=== PATIENT | female | born 1990 | race Caucasian/White ===

== ENCOUNTER → 2016-09-19 | Outpatient (CLI) | payer BC ==
[~2016-09-19] MED LIST: ACET-749 PO; MTR600X PO; PRENTAB26 PO
[2016-09-19 13:43] LABS: BASO % 0.2 %; BASO ABS # 0.02 K/uL (0-0.2); COMPLETE YES; EOS % 1.3 %; HEMATOCRIT 37.9 % (37-47); IG% 0.2 %; LYMPH % 18.1 %; LYMPH ABS # 2.01 K/uL (1.2-3.4); MEAN CELL VOLUME 86.5 fL (80-100); MEAN CORPUSCULAR HEMOGLOBIN 29.9 pg (25-34); MEAN CORPUSCULAR HGB CONC 34.6 g/dl (32-36); MEAN PLATELET VOLUME 11.6 fL (7.4-10.4); NEUT % 74.2 %; PLATELET COUNT 212 K/uL (130-400); RED BLOOD COUNT 4.38 M/uL (4.2-5.4)
[2016-09-19 14:09] LABS: URINE APPEARANCE CLOUDY (CLEAR); URINE BILIRUBIN NEG (NEG); URINE COLOR YELLOW; URINE EPITHELIAL CELL AUTO >30 /lpf (0-5); URINE NITRITE NEG (NEG); URINE SPECIFIC GRAVITY 1.014 (1.000-1.030); UROBILINOGEN NEG (NEG)
[2016-09-19 14:13] LABS: MANUAL MICROSCOPIC REQUIRED? NO; REVIEW REQ? NO
[2016-09-21 14:54] LABS: CHLAMYDIA TRACH RNA*** NOT DETECTED (NOT DETECTED); GC (NEIS GONORRHOEAE)RNA** NOT DETECTED (NOT DETECTED)
== END | disposition home or self-care (01) ==
LOC: C.LAB1850 12:13
PROVIDERS: ATTEND Obstetrics & Gynecology
DX: Z34.90 Encounter for supervision of normal pregnancy, unspecified, unspecified trimester (principal)

== ENCOUNTER → 2016-10-18 | Outpatient (CLI) | payer BC ==
[2016-10-18 18:31] LABS: GTGD 50 Grams
== END | disposition home or self-care (01) ==
LOC: C.LAB1850 16:31
PROVIDERS: ATTEND Obstetrics & Gynecology
DX: Z34.90 Encounter for supervision of normal pregnancy, unspecified, unspecified trimester (principal)

== ENCOUNTER → 2017-01-18 | Outpatient (CLI) | payer BC ==
[2017-01-18 14:11] LABS: URINE APPEARANCE CLEAR (CLEAR); URINE BILIRUBIN NEG (NEG); URINE COLOR YELLOW; URINE NITRITE NEG (NEG); URINE PH 6.5 (4.5-7.5); URINE SPECIFIC GRAVITY 1.007 (1.000-1.030); UROBILINOGEN NEG (NEG)
[2017-01-18 14:23] LABS: MANUAL MICROSCOPIC REQUIRED? NO; REVIEW REQ? NO
== END | disposition home or self-care (01) ==
LOC: C.LABSPEC 13:28
PROVIDERS: ATTEND Obstetrics & Gynecology
DX: Z34.82 Encounter for supervision of other normal pregnancy, second trimester (principal)

== ENCOUNTER → 2017-01-18 | Outpatient (CLI) | payer BC ==
[2017-01-18 14:17] LABS: HEMATOCRIT 33.4 % (37-47)
[2017-01-18 14:59] LABS: GTGD 50 Grams
== END | disposition home or self-care (01) ==
LOC: C.LAB1850 12:23
PROVIDERS: ATTEND Obstetrics & Gynecology
DX: Z34.82 Encounter for supervision of other normal pregnancy, second trimester (principal)

== ENCOUNTER → 2017-03-15 | Outpatient (CLI) | payer BC | END | disposition home or self-care (01) | LOC: C.LABSPEC 15:55 | PROVIDERS: ATTEND Obstetrics & Gynecology | DX: Z34.83 Encounter for supervision of other normal pregnancy, third trimester (principal) ==

== ENCOUNTER 2017-04-13 08:20 | Inpatient (IN) | payer BC ==
[~2017-04-13] VITALS: Ht 162.6 cm; Wt 74.5 kg
[2017-04-13] MEDS ORDERED: LACTATED RINGER'S 1000ML 1,000 ML IV PRN (08:38)
--- NOTE | 2017-04-13 08:58 | Medical Student: [facility] ---
Med Student History & Physical Date of Service Apr 13, 2017. Chief Complaint Check Labor History of Present Illness Source: patient Yeimy is a 26 year old female who presents for labor check at 41 weeks. Her RODRIGO was 04/06/2017 based on 1st trimester US. Her course was uncomplicated. Currently she is feeling contractions every 4 minutes. She states that she feels movements and that her contractions are painful, and she has had leakage of fluid for one day with no gush. There was a small amount of blood in the fluid. Her blood type is O+, and she is rubella immune, GBS positive, VDRL/RPR nonreactive, HIV counseling/testing negative, and had a 1 -hour glucose within normal limits. At 28 weeks her Hb was 11.3 and her Hct was 33.4. Patient denies headache, dizziness, nausea/vomiting, chest pain, and shortness of breath. 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 Past Surgical History Cyst removed from hand. Family History Spina bifida, brother Type 2 diabetes mellitus, maternal side of family Social History Smoking Status: Never Smoker Smokeless Tobacco Use: No Alcohol Use: none Drug Use: none Marital Status: Housing status: lives with family Occupational Status: employed Allergies Coded Allergies: No Known Allergies (Unverified , 03/13/15) Home Medications Acetaminophen/Codeine (Tylenol W/Codeine #3), 2 TAB PO Q4H PRN for Pain not controlled by... Ibuprofen (Ibuprofen), 600 MG PO Q4H PRN for PAIN, SENA, CRAMPING OR FEVER Multivit/Min/Iron/Fol Ac/Pren ( Vitamin), 1 TAB PO DAILY Review of Systems Constitutional: No fever, No chills, No sweats Eyes: + problem reported (Blurred vision on one occasion, at roughly 36 weeks GA) Respiratory: No cough, No wheezing, No shortness of breath Cardiovascular: No chest pain, No edema Abdomen: + pain (Contractions), No nausea, No vomiting Genitourinary - Female: + (Leakage of fluid for one day), No dysuria , No urinary urgency Psychiatric: No depression symptoms Hematologic / Lymphatic: No abnormal bleeding/bruising Physical Exam General Appearance: WD/WN, no apparent distress Head: normocephalic, atraumatic Respiratory/Chest: chest non-tender, lungs clear, normal breath sounds Cardiovascular: regular rate, rhythm, no edema, no murmur Abdomen / GI: normal bowel sounds, non tender, soft, + pertinent finding ( Gravid uterus) Genitourinary - Female: + pertinent finding (Dilation: 6 cm Effacement: 100% Station: -1 (exam by Dr. Horton)) Extremities: normal inspection, no calf tenderness, no pedal edema, non-tender Skin: normal color Monitoring External Monitor: Moderate variability. +Accels No decels. Category 1. Baseline HR: 135 Tocodynamometer: Uterine contractions ever 4 minutes per monitor and patient. Laboratory Results Test 04/13/17 08:38 Assessment and Plan Assessment: This is a 26 year old at 40 weeks gestation who presents today for labor check. She had no complications during . heart tracing is category 1. Plan: Admit to labor and delivery. Monitor mother and fetus with toco and EFM. NPO except ice chips and clear liquids. Expect normal spontaneous vaginal delivery.
[2017-04-13] MEDS ORDERED: LACTATED RINGER'S 1000ML 1,000 ML IV SCH ×2 (09:00→13:57)
[2017-04-13] MEDS ORDERED: PENICILLIN G POTASSIUM IV 6 MU in DEXTROSE 5% 250ML 250 ML IV ONE (09:00)
[2017-04-13 09:14] LABS: HEMATOCRIT 34.4 % (37-47); MEAN CELL VOLUME 84.7 fL (80-100); MEAN CORPUSCULAR HEMOGLOBIN 27.1 pg (25-34); MEAN PLATELET VOLUME 11.1 fL (7.4-10.4); PLATELET COUNT 178 K/uL (130-400); RED BLOOD COUNT 4.06 M/uL (4.2-5.4); WHITE BLOOD COUNT 13.84 K/uL (4.8-10.8)
[2017-04-13] MEDS ORDERED: PENICILLIN G POTASSIUM IV 3 MU in DEXTROSE 5% 100ML 100 ML IV PRN (12:00)
[2017-04-13 12:41] VITALS: Ht 162.6 cm; Wt 74.5 kg
[2017-04-13] MEDS ORDERED: OXYTOCIN 30 UNITS/500ML NSS IV ONE (13:47)
[2017-04-13] MEDS ORDERED: MISOPROSTOL 200 MCG TAB ONE (13:54)
[2017-04-13] MEDS ORDERED: ACETAMINOPHEN 325 MG TAB PO PRN (14:00)
[2017-04-13] MEDS ORDERED: MISOPROSTOL 200 MCG TAB PR SCH (14:00)
[2017-04-13] MEDS ORDERED: DIPHTHERIA/TETANUS/PERTUSSIS 0.5 ML SYR/VIAL IM. ONE (14:00)
[2017-04-13] MEDS ORDERED: LANOLIN OINT EXT PRN ×2 (14:00)
[2017-04-13] MEDS ORDERED: OXYTOCIN 30 UNITS/500ML NSS IV PRN (14:00)
[2017-04-13] MEDS ORDERED: HYDROCORTISONE ACETATE 25 MG SUPP PR PRN (14:00)
[2017-04-13] MEDS ORDERED: OXYCODONE/ACETAMINOPHEN 5-325 TAB PO PRN (14:00)
[2017-04-13] MEDS ORDERED: BENZOCAINE 20% AER SPR 82.5 GM CAN EXT PRN (14:00)
[2017-04-13] MEDS ORDERED: SUPERCREAM 0.870 % 15GM JAR EXT PRN (14:00)
--- NOTE | 2017-04-13 14:25 | DELIVERY SUMMARY ---
DATE OF OPERATION: 04/13/2017 VAGINAL DELIVERY NOTE DATE OF DELIVERY: 04/13/2017 PREOPERATIVE DIAGNOSES: 1. Marcus intrauterine at 41 weeks. 2. Labor. 3. Group B strep positive. POSTOPERATIVE DIAGNOSIS: Same. PROCEDURE: Spontaneous vaginal delivery. SURGEON: Dr. Joy. ASSIST: MS3. ESTIMATED BLOOD LOSS: 400. COMPLICATIONS: None. DISPOSITION: Stable in labor and delivery. DESCRIPTION: Yeimy is a G2, P1 who presented at 41 weeks. She was admitted by my partner Dr. Horton and I assumed care of the patient at 8:30 in the morning on 04/13/2017. The patient arrived in labor at 5 cm. She progressed spontaneously. I was called to the patient's room for an urge to push in the early afternoon. When I examined the patient she was completely dilated with bulging bag and during the exam the bag ruptured for copious meconium stained fluid. The patient then began to push actively and rapidly brought the head to delivery. There was a nuchal cord was that reduced at delivery. The shoulders and the remainder of the delivered without any difficulty. The infant was placed on the foot of the bed which had been left intact. Bulb suction was provided while the cord was doubly clamped and cut. The was then taken to warmer for attention. The placenta delivered spontaneously and was intact with a 3-vessel cord. The patient was found to have a first degree posterior vaginal and perineal laceration however the patient was extremely poorly tolerant to exam and the laceration was very nearly hemostatic. For these reasons it was allowed to remain unrepaired. The patient's fundus was initially firm however there noted to be a fairly aggressive gush of blood. This resolved rapidly with bimanual massage however the patient once again was very poorly tolerant of exam and bimanual massage was unable to be performed in any lengthy manner because of the patient fighting us. We then counseled her that her bleeding was on the heavier end of normal and that we needed to perform massage in order to slow the bleeding. Once again the patient was physically combative with any attempt to massage therefore although EBL I am estimating at only 400 mL, 800 mcg of Cytotec was placed with the patient's permission in order to minimize ongoing blood losses and the need for continued massage. At the present time the patient's fundus is form, lochia is within normal limits and the mother and are in stable condition having tolerated delivery well. I attest to the content of the Intraoperative Record and any orders documented therein. Any exception s are noted below.
--- NOTE | 2017-04-13 16:53 | Discharge Instructions ---
Discharge Instructions Date of Service Apr 13, 2017. Admission Reason for Admission: Check Labor Discharge Discharge Diagnosis / Problem: after delivery Discharge Goals Goal(s): Routine recovery after delivery Medications Continue Dispensed Medications: supercream, dermaplast, tucks, lansinoh Activity Recommendations Activity Limitations: per Instructions/Follow-up section . Instructions / Follow-Up Instructions / Follow-Up ACTIVITY RECOMMENDATIONS: * Gradual return to full activity over the next 2-3 weeks. * No lifting - nothing heavier than baby over the next 2-3 weeks. * Do not engage in vigorous exercise, sexual activity or sports until cleared by your physician. * Do not drive or operate any motorized equipment until cleared by your physician. * You may shower/bathe daily. MEDICATIONS: For discomfort or pain, you may use Acetaminophen (Tylenol), Ibuprofen (Advil), or Naproxen (Aleve) following the package directions. For constipation you may use Colace following the package directions. BREAST CARE: If you are not breast feeding: * Wear a supportive bra 24 hours a day for one to two weeks. * Avoid stimulating your breasts and nipples as much as possible during the first few weeks after delivery. * When taking a shower, have the warm water hit your back, not breasts. * When your breasts feel full, apply ice packs. Usually three to four times a day helps ease the discomfort. * Take a mild pain medication (Tylenol / Motrin) when you are uncomfortable. If breast feeding: * Use breast milk to lubricate nipples. Lansinoh cream may be used for sore nipples. You do not need to remove cream prior to breast feeding. If using a different brand of cream, check the label for directions regarding removal of cream prior to nursing. * Wear a supportive bra. * If having problems with breasts or breast feeding, call a managed services consultant or your health care provider. EPISIOTOMY CARE: After delivery, if you have an episiotomy (stitches), the following steps will ease discomfort and aid healing. * For the first 24 hours after delivery, place ice packs next to your episiotomy to help reduce swelling. * After the first 24 hour-period, sitz baths, either portable or in the tub, are suggested. A shower with a shower arm sprayed over the episiotomy may be comforting. * Leola care should be done after each voiding and bowel movement. Squirt warm water from a plastic bottle over the perineum (region of the body between the anus and urinary opening) and pat dry. * Use Dermoplast to ease discomfort. Shake container. [place] directly over the episiotomy. Place a Tucks on a clean sanitary pad next to your episiotomy. SPECIAL CARE INSTRUCTIONS: When you are discharged from the hospital, it is important for you to follow the instructions listed below: * During the first week at home, you should be able to care for yourself and your baby. In addition, the usual light household activities are encouraged. * Limit your activities to the way you feel. Do not try to clean the house or move furniture. Be sensible. * If you actively engage in sports and have done so up until the time of your delivery, you may resume these activities as soon as you feel able. This may take up to one month or even longer. Use good judgment. * Continue to take your vitamins for at least six weeks after the of your baby. * Your diet need not be limited unless you were on a special diet before your delivery. Breast-feeding mothers need around 2500 calories per day and at least 64-80 ounces of fluid per day (8 to 10 glasses). * You should eat foods from the four major food groups. Crash diets or fad diets are to be avoided. Eating lean meats, fresh fruits and vegetables, low-fat dairy products, high fiber foods and a regular exercise program, will help you get back to your pre- weight without putting your health at risk. * Constipation is sometimes a problem after delivery. Take a mild laxative as needed. If breast feeding, Milk of Magnesia is acceptable to use. You may use a suppository or Fleets enema if no episiotomy. * A daily shower or tub bath is suggested. Be sure to thoroughly and gently dry the perineum. * A bloody vaginal discharge will usually continue until around four weeks post . A small amount of bleeding may continue for as long as six weeks. Vaginal discharge changes from the bright red bleeding after delivery to pink then brownish and finally yellowish-pink before becoming white and disappearing. * Bleeding may increase with activity. Your first period may come in 4-8 weeks. If you are breast feeding, your period may be delayed even longer. * Benjamin Perez (sex) can begin whenever both you and your partner feel comfortable and do not have any form of genital infection. It is recommended that you wait at least six weeks for internal and external healing to occur. If you have questions, please talk to your health care practitioner. A condom should be used to prevent infection and . * Foreplay, gentle intercourse and lubrication is very important the first several times to prevent pain. A water-based lubricant such as K-Y jelly or Astroglide may be used. * If you have RH negative blood and your baby is RH positive, you will receive RHOGAM by injection prior to discharge. The nurse will give you a card to keep with you that has the date and place that you received RHOGAM after delivery. * During your care, you had a Rubella screen done to check for the presence of rubella antibodies in your blood. If your test was negative, you will receive a Rubella vaccine prior to discharge. This vaccine may cause a fever, soreness at the injection site and flu-like symptoms. If these symptoms persist, notify your health care practitioner. is not advised for one month after a Rubella vaccine. * Verbalizes understanding of car seat law as reviewed with patient nursing. * Car Seat hand-out given and reviewed with patient by nursing. * Shaken baby information reviewed with patient by nursing. Call you doctor if: * Heavy bleeding (saturating several pads an hour) or passing clots the size of your fist. * A fever >101 degrees F (38.3 degrees C) on two occasions four hours apart and /or chills. * Unusual pain in the pelvic or vaginal areas. * "Baby Blues" lasting longer than two weeks. If you have any questions or concerns, call your health care practitioner at . FOLLOW UP VISIT: * Please call the office at to schedule a 6 week examination. It is important you keep this appointment. It is important for you to make arrangements for either yearly or twice yearly check-ups thereafter. Current Hospital Diet Patient's current hospital diet: Regular OB Diet Discharge Diet Recommended Diet: Regular Diet Pending Studies Studies pending at discharge: no Medical Emergencies . Who to Call and When: Medical Emergencies: If at any time you feel your situation is an emergency, please call 911 immediately. . Non-Emergent Contact Non-Emergency issues call your: [employer] . . "Provider Documentation" section prepared by Tony Brady. . VTE Core Measure Inpt VTE Proph given/why not?: Treatment not indicated
[2017-04-13] MEDS: IBUPROFEN 600 MG TAB PO PRN (18:09)
[2017-04-13 20:20] VITALS: BP 92/59; PULSE 80; TEMP 36.4; O2SAT 98
[2017-04-13] MEDS: DOCUSATE SODIUM 100 MG CAP PO SCH (20:26)
[2017-04-14 00:30] VITALS: BP 100/63; PULSE 74; TEMP 36.7
[2017-04-14 04:00] VITALS: BP 110/70; PULSE 70; TEMP 36.5
--- NOTE | 2017-04-14 06:09 | OB/GYN Progress Note ---
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 Subjective conversation w/ patient, physical exam, chart review, lab review Ambulation: ambulating normally Voiding: no voiding problems Diet Tolerance: Regular Diet Lochia: Small Feeding Type: Breast Feeding Pain: mild pain Review of Systems Constitutional: No fever Respiratory: No shortness of breath Cardiac: No chest pain Abdomen: No nausea, No vomiting Female : No dysuria Objective Vital Signs Date Time Temp Pulse Resp B/P (MAP) Pulse Ox O2 Delivery O2 Flow Rate FiO2 04/14/17 04:00 36.5 70 20 110/70 (83) Room Air 04/14/17 00:30 Room Air 04/14/17 00:30 36.7 74 18 100/63 (75) Room Air 04/13/17 20:20 98 Room Air 04/13/17 20:20 36.4 80 16 92/59 (70) 98 Room Air Physical Exam General Appearance: WELL-APPEARING Respiratory/Chest: lungs clear, normal breath sounds, no respiratory distress Cardiovascular: regular rate, rhythm Abdomen: normal bowel sounds, non tender, soft Fundus: Firm, Relation to Umbilicus (1 below U) Extremities: non-tender, no pedal edema Laboratory Results Last 24 Hours Test 04/13/17 09:04 04/14/17 04:44 White Blood Count 13.84 K/uL Red Blood Count 4.06 M/uL Hemoglobin 11.0 g/dL Hematocrit 34.4 % Mean Corpuscular Volume 84.7 fL Mean Corpuscular Hemoglobin 27.1 pg Mean Corpuscular Hemoglobin Concent 32.0 g/dl RDW Standard Deviation 39.5 fL RDW Coefficient of Variation 12.8 % Platelet Count 178 K/uL Mean Platelet Volume 11.1 fL Medications Current Inpatient Medications Medications (Trade) Dose Ordered Sig/Geoffrey Route Start Time Stop Time Status Last Admin Dose Admin Lactated Ringer's 1,000 ml @ 125 mls/hr Q8H IV 04/13/17 09:00 04/15/17 08:59 04/13/17 09:18 125 MLS/HR Lactated Ringer's 1,000 ml @ 999 mls/hr Q1H1M PRN IV 04/13/17 08:38 05/13/17 08:37 Lactated Ringer's 1,000 ml @ 125 mls/hr Q8H IV 04/13/17 13:57 05/13/17 13:56 Oxytocin (Pitocin IV) 30 units UD PRN IV 04/13/17 14:00 05/13/17 13:59 Benzocaine (Dermoplast Aero Spr) 1 appln PRN PRN EXT 04/13/17 14:00 05/13/17 13:59 Cocaine HCl (Supercream 0.870% Cr) BID PRN EXT 04/13/17 14:00 04/27/17 13:59 Hydrocortisone Acetate (Anusol Hc Supp) 25 mg BID PRN AL 04/13/17 14:00 05/13/17 13:59 Lanolin (Lanolin Oint) PRN PRN EXT 04/13/17 14:00 05/13/17 13:59 Prenat Multivit/ Hermann/Iron/Folic Ac ( Vitamin Tab) 1 tab DAILY PO 04/14/17 08:00 05/14/17 07:59 Ibuprofen (Motrin Tab) 600 mg Q4H PRN PO 04/13/17 14:00 05/13/17 13:59 04/13/17 18:09 600 MG Acetaminophen (Tylenol Tab) 650 mg Q6H PRN PO 04/13/17 14:00 05/13/17 13:59 Oxycodone/ Acetaminophen (Percocet 5-325mg Tab) 1 tab Q4H PRN PO 04/13/17 14:00 04/27/17 13:59 Docusate Sodium (coLACE CAP) 100 mg BID PO 04/13/17 20:00 05/13/17 19:59 04/13/17 20:26 100 MG Assessment and Plan Post- Day Number: 1 Continue Routine Care: A/P: This is a 26 y/o female, , s/p normal vaginal delivery. She is ambulating and clinically stable. Plan: - Vitals signs are reviewed and WNL (Tmax 36.7 ) - Last Hgb is 11 (04/13). This AM pending - Blood type O+, GBS pos, Rubella Immune - Routine care - Encourage ambulation, monitor and control pain with medication as needed, continue with regular diet as tolerated and monitor lochia - Stool softeners and sitz bath recommended - Encourage breast feeding and educate about breast feeding Resident Physician Supervision Note: I was present with Dr. Brady during the history and exam. I discussed the case with the resident and agree with the findings and plan as documented in the note. Any exceptions or clarifications are listed here: doing well, denies complaints. routine pp care. Documented By: Marce Stafford Resident Involvement: Resident Care Provided Care Provided: OB Delivery
[2017-04-14 06:59] LABS: HEMATOCRIT 34.4 % (37-47)
[2017-04-14 08:40] VITALS: PULSE 88; TEMP 36.4
[2017-04-14] MEDS: PRENATAL VITAMIN TAB PO SCH (08:43)
[2017-04-14] MEDS: DOCUSATE SODIUM 100 MG CAP PO SCH ×2 (08:43→20:49)
[2017-04-14 12:10] VITALS: BP 105/68; PULSE 73; TEMP 36.7
[2017-04-14] MEDS: IBUPROFEN 600 MG TAB PO PRN (14:15)
[2017-04-14 16:45] VITALS: BP 98/63; PULSE 73; TEMP 36.8; O2SAT 96
[2017-04-15] MEDS ORDERED: NURSING VERBAL MED ORDER ONE (00:45)
[2017-04-15] MEDS ORDERED: CALCIUM CARBONATE 500 MG CHEWABLE PO ONE (01:00)
[2017-04-15 01:20] VITALS: BP 103/64; PULSE 55; TEMP 36.6; O2SAT 99
[2017-04-15 01:22] VITALS: O2SAT 99
[2017-04-15] MEDS: IBUPROFEN 600 MG TAB PO PRN ×3 (02:25→17:48)
--- NOTE | 2017-04-15 06:55 | Progress Note ---
Subjective Apr 15, 2017. Subjective conversation w/ patient, physical exam Ambulation: ambulating normally Voiding: no voiding problems Passing Gas: Yes Diet Tolerance: Regular Diet Lochia: Moderate Feeding Type: Breast Feeding Review of Systems Constitutional: No fever, No chills Cardiac: No chest pain Abdomen: No nausea, No vomiting Objective Vital Signs Date Time Temp Pulse Resp B/P (MAP) Pulse Ox O2 Delivery O2 Flow Rate FiO2 04/15/17 01:22 99 Room Air 04/15/17 01:20 36.6 55 18 103/64 (77) 99 Room Air 04/14/17 16:45 96 Room Air 04/14/17 16:45 36.8 73 16 98/63 (75) 96 Room Air 04/14/17 12:10 36.7 73 20 105/68 (80) Room Air 04/14/17 08:40 Room Air 04/14/17 08:40 36.4 88 18 Room Air Physical Exam General Appearance: WELL-APPEARING, NO APPARENT DISTRESS Respiratory/Chest: no respiratory distress, no accessory muscle use Cardiovascular: no edema Abdomen: non tender, soft Fundus: Firm Extremities: no calf tenderness Assessment and Plan Post- Day#: 2
[2017-04-15] MEDS: PRENATAL VITAMIN TAB PO SCH (08:14)
[2017-04-15] MEDS: DOCUSATE SODIUM 100 MG CAP PO SCH ×2 (08:14→17:48)
[2017-04-15 08:15] VITALS: BP 100/65; PULSE 67; TEMP 36.4
[2017-04-15 15:00] VITALS: BP 100/66; PULSE 69; TEMP 36.6
[2017-04-15 17:03] VITALS: BP_DIAS 66; PULSE 69; TEMP 36.6
== END 2017-04-15 18:00 | disposition home or self-care (01) | DRG 775 ==
LOC: C.OPB 08:20 → C.LD 08:29 → C.OPB 08:40 → C.LD 08:40 → C.OBG 19:52
PROVIDERS: ADMIT Obstetrics & Gynecology; ATTEND Obstetrics & Gynecology
PROC: 10E0XZZ Delivery of Products of Conception, External Approach (ICD-10-PCS; principal; 2017-04-13)
DX: O69.81X0 Labor and delivery complicated by cord around neck, without compression, not applicable or unspecified (principal); O70.0 First degree perineal laceration during delivery; Z3A.41 41 weeks gestation of pregnancy; Z22.330 Carrier of Group B streptococcus; Z37.0 Single live birth